=== PATIENT | male | born 1990 | race African-American/Black ===

== ENCOUNTER 2023-12-31 14:29 | Emergency (ER) | payer OTHER ==
[2023-12-31] MEDS ORDERED: Ipratropium/Albuterol 3 ML NEB ONE (17:26)
== END 2023-12-31 18:15 | disposition home or self-care (01) ==
LOC: ERS 14:29
DX: J06.9 Acute upper respiratory infection, unspecified (principal); R06.2 Wheezing
CPT/HCPCS: 71045; 87428; J7620